=== PATIENT | male | born 1970 | race Two or more races ===

== ENCOUNTER 2021-08-20 17:34 | Emergency (ER) | payer OTHER ==
[~2021-08-20] VITALS: Ht 193 cm; Wt 90.7 kg
== END 2021-08-21 14:14 | disposition home or self-care (01) ==
LOC: ER 17:34
DX: S01.121A Laceration with foreign body of right eyelid and periocular area, initial encounter (principal); S00.81XA Abrasion of other part of head, initial encounter; R41.3 Other amnesia; W05.1XXA Fall from non-moving nonmotorized scooter, initial encounter; Y93.89 Activity, other specified; Y92.480 Sidewalk as the place of occurrence of the external cause; Y99.8 Other external cause status